=== PATIENT | male | born 1980 | race Caucasian/White ===

== ENCOUNTER 2023-02-14 17:19 | Emergency (ER) | payer SELFPAY ==
[~2023-02-14] VITALS: Ht 180.3 cm; Wt 68.0 kg
[2023-02-15 00:25] VITALS: BP 140/93
== END 2023-02-15 00:25 | disposition home or self-care (01) ==
LOC: ER 17:19
DX: F33.9 Major depressive disorder, recurrent, unspecified (principal); Z88.1 Allergy status to other antibiotic agents
CPT/HCPCS: 99285-25; Q3014